=== PATIENT | female | born 1970 | race Caucasian/White ===

== ENCOUNTER 2018-07-01 10:19 | Emergency (ER) | payer BC ==
[2018-07-01 10:39] VITALS: BP 133/78
--- NOTE | 2018-07-01 11:11 | EDM.PDOC ---
ED HPI GENERAL MEDICAL PROBLEM - General Chief Complaint: IV Access Related Stated Complaint: PORT FLUSH Time Seen by Provider: 07/01/18 10:38 Source of Information: Reports: Patient History Limitations: Reports: No Limitations - History of Present Illness INITIAL COMMENTS - FREE TEXT/NARRATIVE: The patient presents for a port-a-cath flush. She was out of supplies and she was gone for a few days. She ordered supplies but they are not here yet. She has the cath for MS. She gets infusions. Onset: Gradual Duration: Day(s): Improves with: Reports: None Worsens with: Reports: None Associated Symptoms: Reports: No Other Symptoms - Related Data Allergies Allergy/AdvReac Type Severity Reaction Status Date / Time gabapentin Allergy Cannot Verified 07/01/18 10:26 Remember Sulfa (Sulfonamide Allergy Rash Verified 07/01/18 10:26 Antibiotics) venom-honey bee Allergy Cannot Verified 07/01/18 10:26 [bee venom (honey bee)] Remember Home Meds: Home Meds Estradiol Cypionate [Depo-Estradiol] 1 mg IM ONETIME PRN 07/08/15 [History] Amitriptyline HCl 75 mg PO BEDTIME 07/01/18 [History] Chlorthalidone 25 mg PO DAILY 07/01/18 [History] Fingolimod HCl [Gilenya] 0.5 mg PO DAILY 07/01/18 [History] Levothyroxine 25 mcg PO DAILY 07/01/18 [History] Metoprolol Succinate 50 mg PO DAILY 07/01/18 [History] Topiramate [Topamax] 25 mg PO BID 07/01/18 [History] Past Medical History HEENT History: Reports: Impaired Vision Other HEENT History: wears eyeglasses Cardiovascular History: Reports: Heart Murmur, Hypertension Respiratory History: Reports: Pneumonia, Recurrent 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 LIN[employer] CONTROLLER History: Hysterectomy Musculoskeletal History: Reports: Fracture Neurological History: Reports: Migraines, MS Endocrine/Metabolic History: Reports: Hypothyroidism - Infectious Disease History Infectious Disease History: Reports: Chicken Pox, Measles - Past Surgical History GI Surgical History: Reports: Appendectomy, Cholecystectomy Other Musculoskeletal Surgeries/Procedures:: elbow surgery Social & Family History - Tobacco Use Smoking Status *Q: Never Smoker Second Hand Smoke Exposure: No - Caffeine Use Caffeine Use: Reports: Coffee - Recreational Drug Use Recreational Drug Use: No ED ROS GENERAL - Review of Systems Review Of Systems: See Below Constitutional: Reports: No Symptoms HEENT: Reports: No Symptoms Respiratory: Reports: No Symptoms Cardiovascular: Reports: No Symptoms Endocrine: Reports: No Symptoms GI/Abdominal: Reports: No Symptoms : Reports: No Symptoms ED EXAM, GENERAL - Physical Exam Exam: See Below Exam Limited By: No Limitations General Appearance: Alert, No Apparent Distress Ears: Normal External Exam Nose: Normal Inspection Head: Atraumatic, Normocephalic Neck: Normal Inspection Respiratory/Chest: No Respiratory Distress, Lungs Clear, Normal Breath Sounds Cardiovascular: Regular Rate, Rhythm, No Edema, No Murmur Course - Vital Signs Last Recorded V/S: Last Vital Signs Temp 98.4 F 07/01/18 10:25 Pulse 82 07/01/18 10:25 Resp 16 07/01/18 10:25 BP 133/78 07/01/18 10:25 Pulse Ox 95 07/01/18 10:25 - Orders/Labs/Meds Meds: Medications Discontinued Medications Generic Name Dose Route Start Last Admin Trade Name Thai PRN Reason Stop Dose Admin Heparin Sodium (Porcine) 500 units 07/01/18 10:58 07/01/18 10:58 Heparin Lock Flush 100 Units/Ml FLUSH 07/01/18 10:59 500 units ASDIRECTED ONE Administration Heparin Sodium (Porcine) Confirm 07/01/18 10:54 07/01/18 11:00 Heparin Lock Flush 100 Units/Ml Administered 07/01/18 10:55 Not Given Dose 500 units .ROUTE .STK-MED ONE - Re-Assessments/Exams Free Text/Narrative Re-Assessment/Exam: 07/01/18 19:02 My nurse gave her the supplies and they patient took care of it. I will discharge her home. Departure - Departure Time of Disposition: 11:20 Disposition: Home, Self-Care 01 Condition: Good Clinical Impression: Encounter for care related to Port-a-Cath - Discharge Information *PRESCRIPTION DRUG MONITORING PROGRAM REVIEWED*: Not Applicable *COPY OF PRESCRIPTION DRUG MONITORING REPORT IN PATIENT GERMAN: Not Applicable Referrals: Yessy Jay BLOCKMAN [Primary Care Provider] - Forms: ED Department Discharge Additional Instructions: Flush your cath as directed. Please return if you have any problems.
== END 2018-07-01 11:20 | disposition home or self-care (01) ==
LOC: JD.ED 10:19 → SUPCPDRO 10:19 → JD.ED 11:20
DX: Z45.2 Encounter for adjustment and management of vascular access device (principal); I10 Essential (primary) hypertension; Z79.899 Other long term (current) drug therapy; Z88.2 Allergy status to sulfonamides; Z91.030 Bee allergy status; Z88.8 Allergy status to other drugs, medicaments and biological substances
CPT/HCPCS: 99283; J1642

== ENCOUNTER 2020-06-23 09:55 | Emergency (ER) | payer SELFPAY ==
[2020-06-23] MEDS ORDERED: Ondansetron 4 MG/2 ML SDV IVPUSH ONE (10:30)
[2020-06-23] MEDS ORDERED: Dextrose 5%-0.9% NaCl 1,000 ML IV SCH ×2 (10:30→15:45)
[2020-06-23] MEDS ORDERED: HYDROmorphone 0.5 MG/0.5 ML Syringe IVPUSH ONE ×4 (10:31→15:30)
--- NOTE | 2020-06-23 10:31 | EDM.PDOC ---
ED HPI GENERAL MEDICAL PROBLEM - General Chief Complaint: Flank Pain Stated Complaint: SIDE PAIN AND SOB Time Seen by Provider: 06/23/20 10:17 Source of Information: Reports: Patient History Limitations: Reports: No Limitations, Other (Minute examination of her abdomen due to the severity of her pain.) - History of Present Illness INITIAL COMMENTS - FREE TEXT/NARRATIVE: 49-year-old female presents to the ED with diffuse right upper quadrant right lower quadrant abdominal pain over the last 2 days. She arrived in the ED per wheelchair. She has had previous cholecystectomy and appendectomy. Patient has multiple sclerosis diagnosed in 1994. She is having trouble eating and maintaining weight. Intermittent problems with migraine headaches. Last one was 6 days ago. She admits that she does not eat anything solid for at least 48 hours. Very little oral fluid intake as well. She denies any dysuria urgency or frequency but with her MS she has had recurrent urinary tract infections. History of kidney stones. Currently pain is constant right upper quadrant of the abdomen with intermittent strong colicky component. It does radiate into her right flank suggestive of renal colic. No bowel movement for the last 2 days. I can smell strong ketones on her breath. She is very apprehensive about having any kind of abdominal exam. She states her dog jumped up on her abdomen this morning and it hurt terribly. She reports being very nauseated but has not vomited. She denies cough or sputum production. Onset: Gradual Onset Date: 06/22/20 Duration: Hour(s): (Dental pain started yesterday and has progressively worsened over the last 24 hours), Getting Worse Location: Reports: Abdomen (Primarily right upper quadrant of the abdomen and right lower anterior chest.) Quality: Reports: Other (Constant deep aching pain right upper abdomen) Severity: Severe (with occasional sharp stabbing colicky pain 8-9 out of 10.) Improves with: Reports: None Worsens with: Reports: Other Context: Denies: Activity (With movement and breathing deeply or coughing.), Exercise, Lifting, Sick Contact, Trauma, Other Associated Symptoms: Reports: Chest Pain (Right lower anterior chest pain), Loss of Appetite, Malaise, Nausea/Vomiting (As he without vomiting), Shortness of Breath, Weakness (Hypnic on exam). Denies: Confusion, Cough, cough w sputum, Diaphoresis, Fever/Chills, Headaches, Rash, Seizure, Syncope Treatments SOCIAL MEDIA DIRECTOR: Reports: Acetaminophen Right Flank Pain Score (Numeric/FACES): 10 - Related Data Allergies Allergy/AdvReac Type Severity Reaction Status Date / Time gabapentin Allergy Cannot Verified 06/23/20 10:16 Remember Sulfa (Sulfonamide Allergy Rash Verified 06/23/20 10:16 Antibiotics) venom-honey bee Allergy Cannot Verified 06/23/20 10:16 [bee venom (honey bee)] Remember Home Meds: Home Meds Estradiol Cypionate [Depo-Estradiol] 1 mg IM ONETIME PRN 07/08/15 [History] Amitriptyline HCl 75 mg PO BEDTIME 07/01/18 [History] Chlorthalidone 25 mg PO DAILY 07/01/18 [History] Fingolimod HCl [Gilenya] 0.5 mg PO DAILY 07/01/18 [History] Levothyroxine 25 mcg PO DAILY 07/01/18 [History] Metoprolol Succinate 50 mg PO DAILY 07/01/18 [History] Topiramate [Topamax] 25 mg PO BID 07/01/18 [History] Acetaminophen/HYDROcodone [[place] 325-5 MG] 1 tab PO Q4H #12 tablet 06/23/20 [Rx] Dicyclomine [Bentyl] 20 mg PO Q6H PRN #12 tablet 06/23/20 [Rx] Ondansetron [Zofran] 4 mg BUCCAL Q6H PRN #10 tab 06/23/20 [Rx] Past Medical History HEENT History: Reports: Impaired Vision Other HEENT History: wears eyeglasses Cardiovascular History: Reports: Heart Murmur, Hypertension Respiratory History: Reports: Pneumonia, Recurrent [employer] History: Reports: Other [employer] History: Hysterectomy Musculoskeletal History: Reports: Fracture Neurological History: Reports: Migraines, MS (Diagnosed in 2015) Endocrine/Metabolic History: Reports: Hypothyroidism - Infectious Disease History Infectious Disease History: Reports: Chicken Pox, Measles - Past Surgical History GI Surgical History: Reports: Appendectomy, Cholecystectomy Other Musculoskeletal Surgeries/Procedures:: elbow surgery Social & Family History - Tobacco Use Smoking Status *Q: Current Every Day Smoker Years of Tobacco use: 20 Packs/Tins Daily: 0.5 - Caffeine Use Caffeine Use: Reports: Coffee - Recreational Drug Use Recreational Drug Use: No - Living Situation & Occupation Living situation: Reports: Occupation: Unemployed ED ROS GENERAL - Review of Systems Review Of Systems: See Below Constitutional: Reports: Malaise, Weakness, Fatigue, Decreased Appetite, Weight Loss (Has been slowly losing weight for the last couple of months.). Denies: Fever, Chills HEENT: Reports: No Symptoms Respiratory: Reports: Shortness of Breath. Denies: Wheezing, Pleuritic Chest Pain, Cough, Sputum Cardiovascular: Reports: Chest Pain (Her anterior chest pain referred from the upper abdomen.), Blood Pressure Problem, Lightheadedness. Denies: Claudication, Edema, Orthopnea Endocrine: Reports: Fatigue GI/Abdominal: Reports: Abdominal Pain (Right upper quadrant abdominal pain which is constant with a colicky component. Radiates into her right flank), Constipation, Nausea (Problems with constipation.). Denies: Vomiting : Reports: Flank Pain (Neck discomfort.), Incontinence. Denies: Dysuria, Frequency Musculoskeletal: Reports: Other (Weakness so on her right side than on the left. She usually gets around without any gait aid but does have 2 canes at home if she needs them.) Skin: Reports: No Symptoms ( of arms and legs due to multiple sclerosis.) Neurological: Reports: Numbness, Tingling, Difficulty Walking (Due to multiple sclerosis.), Weakness Psychiatric: Reports: No Symptoms Hematologic/Lymphatic: Reports: No Symptoms Immunologic: Reports: No Symptoms ED EXAM, GI/ABD - Physical Exam Exam: See Below Exam Limited By: Uncooperative (Having her abdomen examined due to the pain.) General Appearance: Alert, WD/WN, Moderate Distress, Thin, Other (Ventilating and breath smells strongly of ketones. Vital signs show temperature of 36.2. Heart rate 106 and sinus respiratory 22 with a O2 sats of 98% BP 156/87) Eyes: Bilateral: Normal Appearance (No scleral icterus or blepharal pallor.) Throat/Mouth: Normal Inspection, Normal Lips, Normal Oropharynx, Other (Lung is very dry and coated.) Head: Atraumatic, Normocephalic Neck: Normal Inspection, Supple, Non-Tender, Full Range of Motion. No: Carotid Bruit, Lymphadenopathy (L), Lymphadenopathy (R) Respiratory/Chest: Lungs Clear, Normal Breath Sounds, No Accessory Muscle Use, Respiratory Distress (Kidney at rest. Hyperventilating), Other (Patient has a Port-A-Cath right upper anterior chest) Cardiovascular: Normal Peripheral Pulses, No Edema, No Gallop, No Murmur, No R ub, Tachycardia (Cardiac arrest 106.) GI/Abdominal Exam: Tender (Patient is exquisitely tender to palpation right upper quadrant right mid abdomen all the way down to the right lower quadrant. She is guarding and has pain even to light percussion. She would not allow deep palpation.), Abnormal Bowel Sounds (Bowel sounds are present but are few and far between.), Other (Day void abdomen.) Back Exam: Other (Back was not examined as the patient) Extremities: Normal Inspection, Normal Range of Motion, Non-Tender, No Pedal Edema, Other (Wasting of the muscles of her lower extremities very thin.) Neurological: Alert, Oriented, CN II-XII Intact, Normal Cognition. No: Normal Gait (Not assessed), Normal Reflexes Psychiatric: Other (Anxious and apprehensive about being examined.) Skin Exam: Warm, Dry, Intact, Normal Color, No Rash, Other (No fever detected.) EKG INTERPRETATION EKG Date: 06/23/20 Time: 11:15 Rhythm: NSR Rate (Beats/Min): 76 [place]: Normal P-Wave: Present (P wave is inverted in lead V1 and V2 nonspecific finding) QRS: Other (Q wave V1 V2 suggesting poor R wave progression.) ST-T: Normal QT: Normal EKG Interpretation Comments: Borderline ECG Course - Vital Signs Last Recorded V/S: Last Vital Signs Temp 36.1 C 06/23/20 15:01 Pulse 58 L 06/23/20 15:01 Resp 16 06/23/20 15:01 BP 120/63 06/23/20 15:01 Pulse Ox 98 06/23/20 15:01 - Orders/Labs/Meds Orders: Active Orders 24 hr Category Date Time Status EKG Documentation Completion [RC] STAT Care 06/23/20 10:40 Active VITAMIN B12 [CHEM] Stat Lab 06/23/20 15:59 Ordered Dextrose 5%-0.9% NaCl [Dextrose 5%-Normal Saline] 1,000 Med 06/23/20 10:30 Active ml IV ASDIRECTED Dextrose 5%-0.9% NaCl [Dextrose 5%-Normal Saline] 1,000 Med 06/23/20 15:45 Active ml IV ASDIRECTED Dextrose 5%-Lactated Ringers 1,000 ml Med 06/23/20 12:15 Active IV ASDIRECTED Ketorolac [Toradol] Med 06/23/20 15:30 Active 30 mg IVPUSH ONETIME Medication Orders Dextrose/Sodium Chloride (Dextrose 5%-Normal Saline) 1,000 mls @ 999 mls/hr IV ASDIRECTED CARIDAD Last Admin: 06/23/20 10:54 Dose: 999 mls/hr Documented by: MIKAELA Dextrose/Lactated Ringer's (Dextrose 5%-Lactated Ringers) 1,000 mls @ 999 mls/hr IV ASDIRECTED CARIDAD Last Admin: 06/23/20 13:41 Dose: 999 mls/hr Documented by: Infusion: 06/23/20 13:18 Dose: 999 mls/hr Documented by: Admin: 06/23/20 12:17 Dose: 999 mls/hr Documented by: MIKAELA Dextrose/Sodium Chloride (Dextrose 5%-Normal Saline) 1,000 mls @ 999 mls/hr IV ASDIRECTED CARIDAD Last Admin: 06/23/20 15:50 Dose: 999 mls/hr Documented by: MIKAELA Ketorolac Tromethamine (Toradol) 30 mg IVPUSH ONETIME CARIDAD Last Admin: 06/23/20 15:52 Dose: 30 mg Documented by: MIKAELA Labs: Laboratory Tests 06/23/20 06/23/20 06/23/20 Range/Units 10:30 10:50 10:50 WBC 5.06 (3.98-10.04) K/mm3 RBC 4.02 (3.98-5.22) M/mm3 Hgb 14.7 (11.2-15.7) gm/dl Hct 41.1 (34.1-44.9) % MCV 102.2 H (79.4-94.8) fl MCH 36.6 H (25.6-32.2) pg MCHC 35.8 H (32.2-35.5) g/dl RDW Std Deviation 53.4 H (36.4-46.3) fL Plt Count 224 (182-369) K/mm3 MPV 8.3 L (9.4-12.3) fl Neutrophils % (Manual) 82 H (40-60) % Band Neutrophils % 1 (0-10) % Lymphocytes % (Manual) 11 L (20-40) % Atypical Lymphs % 0 % Monocytes % (Manual) 5 (2-10) % Eosinophils % (Manual) 0 L (0.7-5.8) % Basophils % (Manual) 1 (0.1-1.2) Platelet Estimate Adequate Plt Morphology Comment Normal Macrocytosis 1+ slight RBC Morph Comment Not Reportable ESR (0-20) mm/hr Sodium 134 L (136-145) mEq/L Potassium 4.5 (3.5-5.1) mEq/L Chloride 97 L (98-107) mEq/L Carbon Dioxide 17 L (21-32) mEq/L Anion Gap 24.5 H (5-15) BUN 15 (7-18) mg/dL Creatinine 1.0 (0.55-1.02) mg/dL Est Cr Clr Drug Dosing 42.89 mL/min Estimated GFR (MDRD) 58 (>60) mL/min BUN/Creatinine Ratio 15.0 (14-18) Glucose 74 (74-106) mg/dL Serum Osmolality 292 (280-300) mosm/kg Lactic Acid (0.4-2.0) mmol/L Uric Acid (2.6-6.0) mg/dL Calcium 9.4 (8.5-10.1) mg/dL Magnesium 1.8 (1.8-2.4) mg/dl Total Bilirubin 1.2 H (0.2-1.0) mg/dL AST 87 H (15-37) U/L ALT 61 H (14-59) U/L Alkaline Phosphatase 92 (46-116) U/L C-Reactive Protein < 0.2 (<1.0) mg/dL Total Protein 7.8 (6.4-8.2) g/dl Albumin 4.5 (3.4-5.0) g/dl Globulin 3.3 gm/dL Albumin/Globulin Ratio 1.4 (1-2) Urine Color Yellow (Yellow) Urine Appearance Clear (Clear) Urine pH 6.0 (5.0-8.0) Ur Specific [place] 1.025 (1.005-1.030) Urine Protein 1+ H (Negative) Urine Glucose (UA) Negative (Negative) Urine Ketones 3+ H (Negative) Urine Occult Blood Negative (Negative) Urine Nitrite Negative (Negative) Urine Bilirubin 1+ H (Negative) Urine Urobilinogen 0.2 (0.2-1.0) Ur Leukocyte Esterase Negative (Negative) Urine RBC Not seen (0-5) /hpf Urine WBC 0-5 (0-5) /hpf Ur Squamous Epith Cells 5-10 H (0-5) /hpf Urine Bacteria Not seen (FEW) /hpf Urine Mucus Not seen (FEW) /hpf Ketones (0.0-0.3) mM 06/23/20 06/23/20 06/23/20 Range/Units 10:50 10:50 10:50 WBC (3.98-10.04) K/mm3 RBC (3.98-5.22) M/mm3 Hgb (11.2-15.7) gm/dl Hct (34.1-44.9) % MCV (79.4-94.8) fl MCH (25.6-32.2) pg MCHC (32.2-35.5) g/dl RDW Std Deviation (36.4-46.3) fL Plt Count (182-369) K/mm3 MPV (9.4-12.3) fl Neutrophils % (Manual) (40-60) % Band Neutrophils % (0-10) % Lymphocytes % (Manual) (20-40) % Atypical Lymphs % % Monocytes % (Manual) (2-10) % Eosinophils % (Manual) (0.7-5.8) % Basophils % (Manual) (0.1-1.2) Platelet Estimate Plt Morphology Comment Macrocytosis RBC Morph Comment ESR 6 (0-20) mm/hr Sodium (136-145) mEq/L Potassium (3.5-5.1) mEq/L Chloride (98-107) mEq/L Carbon Dioxide (21-32) mEq/L Anion Gap (5-15) BUN (7-18) mg/dL Creatinine (0.55-1.02) mg/dL Est Cr Clr Drug Dosing mL/min Estimated GFR (MDRD) (>60) mL/min BUN/Creatinine Ratio (14-18) Glucose (74-106) mg/dL Serum Osmolality (280-300) mosm/kg Lactic Acid 1.0 (0.4-2.0) mmol/L Uric Acid (2.6-6.0) mg/dL Calcium (8.5-10.1) mg/dL Magnesium (1.8-2.4) mg/dl Total Bilirubin (0.2-1.0) mg/dL AST (15-37) U/L ALT (14-59) U/L Alkaline Phosphatase (46-116) U/L C-Reactive Protein (<1.0) mg/dL Total Protein (6.4-8.2) g/dl Albumin (3.4-5.0) g/dl Globulin gm/dL Albumin/Globulin Ratio (1-2) Urine Color (Yellow) Urine Appearance (Clear) Urine pH (5.0-8.0) Ur Specific [place] (1.005-1.030) Urine Protein (Negative) Urine Glucose (UA) (Negative) Urine Ketones (Negative) Urine Occult Blood (Negative) Urine Nitrite (Negative) Urine Bilirubin (Negative) Urine Urobilinogen (0.2-1.0) Ur Leukocyte Esterase (Negative) Urine RBC (0-5) /hpf Urine WBC (0-5) /hpf Ur Squamous Epith Cells (0-5) /hpf Urine Bacteria (FEW) /hpf Urine Mucus (FEW) /hpf Ketones 8.16 (0.0-0.3) mM 06/23/20 06/23/20 06/23/20 Range/Units 10:50 15:50 15:50 WBC (3.98-10.04) K/mm3 RBC (3.98-5.22) M/mm3 Hgb (11.2-15.7) gm/dl Hct (34.1-44.9) % MCV (79.4-94.8) fl MCH (25.6-32.2) pg MCHC (32.2-35.5) g/dl RDW Std Deviation (36.4-46.3) fL Plt Count (182-369) K/mm3 MPV (9.4-12.3) fl Neutrophils % (Manual) (40-60) % Band Neutrophils % (0-10) % Lymphocytes % (Manual) (20-40) % Atypical Lymphs % % Monocytes % (Manual) (2-10) % Eosinophils % (Manual) (0.7-5.8) % Basophils % (Manual) (0.1-1.2) Platelet Estimate Plt Morphology Comment Macrocytosis RBC Morph Comment ESR (0-20) mm/hr Sodium 135 L (136-145) mEq/L Potassium 3.6 (3.5-5.1) mEq/L Chloride 103 (98-107) mEq/L Carbon Dioxide 25 (21-32) mEq/L Anion Gap 10.6 (5-15) BUN 9 (7-18) mg/dL Creatinine 0.9 (0.55-1.02) mg/dL Est Cr Clr Drug Dosing 47.66 mL/min Estimated GFR (MDRD) > 60 (>60) mL/min BUN/Creatinine Ratio 10.0 L (14-18) Glucose 346 H (74-106) mg/dL Serum Osmolality (280-300) mosm/kg Lactic Acid (0.4-2.0) mmol/L Uric Acid 6.4 H (2.6-6.0) mg/dL Calcium 8.1 L (8.5-10.1) mg/dL Magnesium (1.8-2.4) mg/dl Total Bilirubin 0.7 (0.2-1.0) mg/dL AST 53 H (15-37) U/L ALT 42 (14-59) U/L Alkaline Phosphatase 68 (46-116) U/L C-Reactive Protein (<1.0) mg/dL Total Protein 5.8 L (6.4-8.2) g/dl Albumin 3.3 L (3.4-5.0) g/dl Globulin 2.5 gm/dL Albumin/Globulin Ratio 1.3 (1-2) Urine Color (Yellow) Urine Appearance (Clear) Urine pH (5.0-8.0) Ur Specific [place] (1.005-1.030) Urine Protein (Negative) Urine Glucose (UA) (Negative) Urine Ketones (Negative) Urine Occult Blood (Negative) Urine Nitrite (Negative) Urine Bilirubin (Negative) Urine Urobilinogen (0.2-1.0) Ur Leukocyte Esterase (Negative) Urine RBC (0-5) /hpf Urine WBC (0-5) /hpf Ur Squamous Epith Cells (0-5) /hpf Urine Bacteria (FEW) /hpf Urine Mucus (FEW) /hpf Ketones 0.2 (0.0-0.3) mM Meds: Medications Generic Name Dose Route Start Last Admin Trade Name Freq PRN Reason Stop Dose Admin Dextrose/Sodium Chloride 1,000 mls @ 999 mls/hr 06/23/20 10:30 06/23/20 10:54 Dextrose 5%-Normal Saline IV 999 mls/hr ASDIRECTED CARIDAD Administration Dextrose/Lactated Ringer's 1,000 mls @ 999 mls/hr 06/23/20 12:15 06/23/20 13:41 Dextrose 5%-Lactated Ringers IV 999 mls/hr ASDIRECTED CARIDAD Administration Dextrose/Sodium Chloride 1,000 mls @ 999 mls/hr 06/23/20 15:45 06/23/20 15:50 Dextrose 5%-Normal Saline IV 999 mls/hr ASDIRECTED CARIDAD Administration Ketorolac Tromethamine 30 mg 06/23/20 15:30 06/23/20 15:52 Toradol IVPUSH 30 mg ONETIME CARIDAD Administration Discontinued Medications Generic Name Dose Route Start Last Admin Trade Name Thai PRN Reason Stop Dose Admin Hydromorphone HCl 0.5 mg 06/23/20 10:31 06/23/20 10:55 Dilaudid IVPUSH 06/23/20 10:32 0.5 mg ONETIME ONE Administration Hydromorphone HCl 0.5 mg 06/23/20 11:33 06/23/20 11:40 Dilaudid IVPUSH 06/23/20 11:34 0.5 mg ONETIME ONE Administration Hydromorphone HCl 0.5 mg 06/23/20 13:29 06/23/20 13:39 Dilaudid IVPUSH 06/23/20 13:30 0.5 mg ONETIME ONE Administration Hydromorphone HCl 0.5 mg 06/23/20 15:30 06/23/20 15:52 Dilaudid IVPUSH 06/23/20 15:31 0.5 mg ONETIME ONE Administration Metoclopramide HCl 5 mg 06/23/20 15:29 06/23/20 15:50 Reglan IVPUSH 06/23/20 15:30 5 mg ONETIME ONE Administration Ondansetron HCl 4 mg 06/23/20 10:30 06/23/20 10:53 Zofran IVPUSH 06/23/20 10:31 4 mg ONETIME ONE Administration - Radiology Interpretation Free Text/Narrative:: 49-year-old female with known multiple sclerosis for 5 years presents to the ED complaining primarily of severe right mary-abdominal pain. It hurts to take a deep breath on the right anterior chest. She has had previous cholecystectomy and appendectomy. Clinically she is showing signs of peritoneal irritation of the right lower quadrant. She is apprehensive to allow a thorough examination of the abdomen. Bowel sounds are present but are few and far between. She has not been eating for a couple of days at least and is breath smells strongly of ketones. I believe she is significantly acidotic. This is mainly to be due to ketosis from not eating for several days. Plan 1 view of the chest. CT of the abdomen and pelvis with out contrast. Routine labs without blood cultures at this time since she is afebrile. Urinalysis. Serum ketones and lactic acid to be done. Serum osmolality as well. IV will be D5 normal saline at open. Given Zofran 4 mg IV for nausea relief and Dilaudid 0.5 mg IV for pain relief. - Re-Assessments/Exams Free Text/Narrative Re-Assessment/Exam: 06/23/20 11:19 chest x-ray done portably reveals markedly hyperinflated lung moy bilaterally. The lung parenchyma is clear without pneumothorax or pleural effusion. Cardiac silhouette is normal. No free air. CT of the abdomen reveals normal liver with mild fatty infiltration. With absence of the gallbladder. Pancreas appears normal stomach contains fluid spleen is normal. Adrenal glands show no nodules . Right kidney is slightly larger than the left but no signs of renal stones or ureteric obstruction identified. There is no free fluid or inflammatory change. There is a fair amount of air distending the colon and minimal amount of stool. There is one loop of slightly prominent gas-filled small bowel within the mid abdomen. This does not appear to be obstructive and may represent a focal small bowel ileus. No signs of bowel obstruction. No retroperitoneal adenopathy. No fluid in the pelvis. 06/23/20 11:24 Count is 5.06 with 82% neutrophils and 1% bands cells. Hemoglobin is 14.7 with hematocrit of 41.1. MCV is elevated at 102.2 platelet count 224,000. Urinalysis shows 1+ proteinuria 3+ ketones and 1+ bilirubin on the dip. Negative leukocyte esterase no white cells on the micro and 5-10 squamous epithelial cells. 06/23/20 11:37 having quite a bit of pain almost writhing on the bed. She appears quite uncomfortable. Nausea is better. Will repeat Dilaudid 0.5 mg IV. Will await chemistry. 06/23/20 11:39 Sodium is 134 with a potassium of 4.5 chloride 97 with a bicarb 17 anion gap is 24.5 markedly elevated. BUN is 15 with a creatinine of 1.0. Estimated GFR is 58. Glucose is 74 serum osmolality is pending. Calcium is 9.4 with magnesium 1.8 bilirubin is 1.2 with an AST of 87 and ALT of 61. Alkaline phosphatase is 92. C-reactive protein is less than 0.2. Total protein 7.8 with an albumin fraction of 4.5. Lactic acid and ketones pending 06/23/20 12:09 Results of the test discussed with the patient. Lactic acid is 1.0 serum osmolality was 292 serum ketones markedly elevated at 8.16. Patient has completed her first liter of IV fluids will start a second liter of D5 LR at open. She will need at least 3 L of fluid to improve her anion gap. 06/23/20 13:30 and is complaining of recurrent right upper quadrant abdominal pain which I believe to be intestinal colic. Will repeat Dilaudid 0.5 mg IV for pain relief. 06/23/20 15:30 Patient has completed their third liter of IV fluids. Still complaining of right upper quadrant abdominal pain I am therefore going to have repeat labs done to see what her anion gap is. Meantime we will continue fluids until the results of this test become available. I will repeat Dilaudid 0.5 mg IV with Reglan 5 mg IV for nausea relief which has returned as well. Will be given Toradol 30 mg IV for pain relief as well. 06/23/20 16:35 Second set of labs show an improved sodium from 1 34-1 35. Potassium is 3.6 chloride 103 with a bicarb of 25 anion gap is down to 10.6 from 24.5. BUN is 9 with a creatinine of 0.9. Glucose is 346. Ketones are down to 0.2. For her ketoacidosis has been completely corrected and she is well hydrated. Plan will be to discharge her to home with Zofran 4 mg sublingual every 4 to 6 hours. For nausea relief and Bentyl 20 mg every 6 hours as necessary for abdominal pain relief with tramadol 50 mg every 6 hours as needed for pain relief x12 tabs is feeling better. She has family members that will come and take her home. Departure - Departure Time of Disposition: 16:43 Disposition: Home, Self-Care 01 Condition: Fair Clinical Impression: Metabolic acidosis with increased anion gap and accumulation of organic acids, Ketosis Abdominal pain Qualifiers: Abdominal location: right upper quadrant Qualified Code(s): R10.11 - Right upper quadrant pain - Discharge Information *PRESCRIPTION DRUG MONITORING PROGRAM REVIEWED*: Not Applicable *COPY OF PRESCRIPTION DRUG MONITORING REPORT IN PATIENT GERMAN: Not Applicable Prescriptions: Dicyclomine [Bentyl] 20 mg PO Q6H PRN #12 tablet PRN Reason: Abdominal cramps/diarrhea Acetaminophen/HYDROcodone [[place] 325-5 MG] 1 tab PO Q4H #12 tablet Ondansetron [Zofran] 4 mg BUCCAL Q6H PRN #10 tab PRN Reason: nausea or vomiting Instructions: Abdominal Pain, Adult Referrals: Fito Calloway DO [Primary Care Provider] - Forms: ED Department Discharge Additional Instructions: Evaluation in the emergency room today in regards to gradually worsening right sided abdominal pain particularly right upper quadrant over the last 3 days. You admitted that you are having trouble maintaining weight due to not caring for sweet foods particularly candy etc. Evaluation initially we could smell a great deal of ketones on your breath which means that you are breaking down only your fats for energy. The accumulation of broken down fatty acids which we lump together called ketones but are actually made of 3 different chemicals because of metabolic acidosis. Your body tries very hard to maintain your blood pH at 7.4. When you develop an acidosis it creates nausea vomiting and severe abdominal pain rating into the flanks. CT of your abdomen did not show any signs of infection or other abnormalities. Similarly chest x-ray was within normal limits. Lab test also did not show any signs of infection and no signs of urinary tract infection. You were treated with 3 L of IV fluids containing sugar and the electrolytes that she required to reverse the metabolic acidosis. Still need to continue to drink fluids particularly things like Gatorade or Powerade and fairly large quantities for the next 2 days to prevent recurrence of metabolic acidosis. You must also start to eat some solids. Suggest protein milkshakes or other forms of carbohydrates to have some sugar in your system to prevent the reoccurrence of ketoacidosis. Follow-up with your personal care physician if any further problems occur. Continue all current medications. Sepsis Event Note (ED) - Evaluation Sepsis Screening Result: No Definite Risk - Focused Exam Vital Signs: Vital Signs Temp Pulse Resp BP Pulse Ox 06/23/20 15:01 36.1 C 58 L 16 120/63 98 06/23/20 13:43 70 18 124/69 06/23/20 12:01 36.1 C 73 16 109/68 93 L 06/23/20 10:12 36.2 C 22 H 156/87 H 98 - My Orders Last 24 Hours: My Active Orders 06/23/20 10:30 Dextrose 5%-0.9% NaCl [Dextrose 5%-Normal Saline] 1,000 ml IV ASDIRECTED 06/23/20 10:40 EKG Documentation Completion [RC] STAT 06/23/20 12:15 Dextrose 5%-Lactated Ringers 1,000 ml IV ASDIRECTED 06/23/20 15:30 Ketorolac [Toradol] 30 mg IVPUSH ONETIME 06/23/20 15:45 Dextrose 5%-0.9% NaCl [Dextrose 5%-Normal Saline] 1,000 ml IV ASDIRECTED 06/23/20 15:59 VITAMIN B12 [CHEM] Stat - Assessment/Plan Last 24 Hours: My Active Orders 06/23/20 10:30 Dextrose 5%-0.9% NaCl [Dextrose 5%-Normal Saline] 1,000 ml IV ASDIRECTED 06/23/20 10:40 EKG Documentation Completion [RC] STAT 06/23/20 12:15 Dextrose 5%-Lactated Ringers 1,000 ml IV ASDIRECTED 06/23/20 15:30 Ketorolac [Toradol] 30 mg IVPUSH ONETIME 06/23/20 15:45 Dextrose 5%-0.9% NaCl [Dextrose 5%-Normal Saline] 1,000 ml IV ASDIRECTED 06/23/20 15:59 VITAMIN B12 [CHEM] Stat
--- NOTE | 2020-06-23 11:26 | CT ---
CT abdomen and pelvis Technique: Multiple axial sections were obtained from above the dome of the diaphragm inferiorly through the pubic symphysis. Intravenous and oral contrast not utilized. Study has been performed as a ureteral stone protocol. Findings: Kidneys show no abnormal calcifications. No ureteral dilatation or ureteral calculi are seen. No bladder calculi are seen. Visualized lung bases show nothing acute. Liver contains no focal parenchymal abnormality. Liver shows mild fatty infiltration. Spleen appears within normal limits. Adrenal glands show no nodule. Pancreas is within normal limits. Surgical clips are seen from prior cholecystectomy. Aorta shows no aneurysm. No retroperitoneal adenopathy or mesenteric abnormalities are seen. No pelvic mass or adenopathy is seen. No free fluid or inflammatory change is appreciated. Appendix not visualized with certainty. There is a loop of slightly prominent gas-filled small bowel within the mid abdomen. This does not appear to be obstructive and may represent a focal small bowel ileus. No other small bowel dilatation is seen. Impression: 1. No renal calculi, ureteral dilatation or ureteral stone is seen. 2. Single loop of slightly prominent small bowel is seen possibly due to focal ileus. No additional small bowel dilatation is seen. 3. Other nonacute findings as described above. Diagnostic code #3 This report was dictated in [facility]
[2020-06-23] MEDS: Dextrose 5%-Lactated Ringers 1,000 ML IV SCH ×2 (12:17→13:41)
--- NOTE | 2020-06-23 13:55 | CR ---
Chest: Portable view of the chest was obtained. Comparison: Prior chest x-ray of 06/18/19. Heart size and mediastinum are normal. Right-sided infusion catheter is seen. Lungs are clear. Bony structures are grossly intact. Impression: 1. Right-sided infusion catheter. 2. Nothing acute is seen on portable chest x-ray. Diagnostic code #2 This report was dictated in MDT
[2020-06-23] MEDS ORDERED: Metoclopramide 10 MG/2 ML SDV IVPUSH ONE (15:29)
[2020-06-23] MEDS ORDERED: Ketorolac 30 MG/ML SDV IVPUSH SCH (15:30)
[2020-06-23 18:40] VITALS: BP 105/68; PULSE 56
== END 2020-06-23 17:50 | disposition home or self-care (01) ==
LOC: JD.ED 09:55
DX: R10.11 Right upper quadrant pain (principal); E87.2 Acidosis; E88.89 Other specified metabolic disorders; E03.9 Hypothyroidism, unspecified; G43.909 Migraine, unspecified, not intractable, without status migrainosus; I10 Essential (primary) hypertension; F17.210 Nicotine dependence, cigarettes, uncomplicated; Z88.2 Allergy status to sulfonamides; Z91.030 Bee allergy status; Z88.8 Allergy status to other drugs, medicaments and biological substances; Z79.899 Other long term (current) drug therapy
CPT/HCPCS: 36415; 71045; 74176; 80053; 81001; 82009; 82607; 83605; 83735; 83930; 84550; 85007; 85027; 85652; 86140; 93005; 96374; 96375; 96376; 99285; J1170; J1642; J1885; J2405; J2765; J7042; J7121

== ENCOUNTER 2022-06-15 10:47 | Inpatient (IN) | payer MEDICAID ==
[2022-06-15] MEDS ORDERED: methylPREDNISolone Sodium Succinate 125 MG/2 ML SDV IVPUSH ONE (11:19)
[2022-06-15] MEDS ORDERED: Albuterol/Ipratropium 3.0-0.5 MG/3 ML Neb Soln NEB ONE ×2 (11:19→14:17)
[2022-06-15 12:03] LABS: ESTIMATED GFR 103 mL/min (>60)
[2022-06-15] MEDS ORDERED: Sodium Chloride 0.9% 10 ML Syringe FLUSH PRN (12:31)
[2022-06-15] MEDS ORDERED: Iopamidol 755 Mg/ML 100 ML Bottle IVPUSH ONE (12:31)
[2022-06-15] MEDS ORDERED: Sodium Chloride 0.9% 100 ML IV SCH (12:45)
[2022-06-15] MEDS ORDERED: Potassium Chloride 20 MEQ Tab.ER PO ONE (16:44)
[2022-06-15] MEDS ORDERED: Pantoprazole 40 MG Vial ONE (21:23)
[2022-06-15] MEDS ORDERED: Pantoprazole 40 MG in Sodium Chloride 0.9% 100 ML IV ONE (21:45)
[2022-06-15] MEDS ORDERED: Zolpidem 5 MG Tab PO ONE (21:49)
[2022-06-15] MEDS ORDERED: Mirtazapine 15 MG Tab PO ONE (21:50)
[2022-06-15] MEDS: Albuterol/Ipratropium 3.0-0.5 MG/3 ML Neb Soln NEB PRN (21:59)
[2022-06-15] MEDS: Dextrose 5%-0.45% NaCl 1,000 ML IV SCH (22:24)
[2022-06-16] MEDS: Albuterol/Ipratropium 3.0-0.5 MG/3 ML Neb Soln NEB PRN ×4 (05:41→21:48)
[2022-06-16] MEDS: Levothyroxine 25 MCG Tab PO SCH (07:00)
[2022-06-16] MEDS: Cholecalciferol (Vitamin D3) 5,000 UNIT Tab PO SCH (08:06)
[2022-06-16] MEDS: predniSONE 20 MG Tab PO SCH (08:06)
[2022-06-16] MEDS: Losartan 50 MG Tab PO SCH (08:06)
[2022-06-16] MEDS: Nicotine 14 MG/24 Hr Patch TRDERM SCH (08:06)
[2022-06-16] MEDS: Enoxaparin 40 MG/0.4 ML Syringe SUBCUT SCH (08:07)
[2022-06-16] MEDS: Acetaminophen 325 MG Tab PO PRN (09:05)
[2022-06-16] MEDS: Dextrose 5%-0.45% NaCl 1,000 ML IV SCH (11:18)
[2022-06-16] MEDS: guaiFENesin 600 MG Tab.ER PO SCH (20:57)
[2022-06-16] MEDS: Potassium Chloride 20 MEQ Tab.ER PO SCH (20:57)
[2022-06-16] MEDS ORDERED: Zolpidem 5 MG Tab PO SCH (21:00)
[2022-06-16] MEDS ORDERED: Mirtazapine 15 MG Tab PO SCH (21:00)
[2022-06-16] MEDS: Acetylcysteine 20% 200 MG/ML 4 ML Nebulizer Soln SDV NEB SCH (21:45)
[2022-06-17] MEDS: Acetaminophen 325 MG Tab PO PRN (00:09)
[2022-06-17] MEDS: Dextrose 5%-0.45% NaCl 1,000 ML IV SCH (00:10)
[2022-06-17] MEDS: Levothyroxine 25 MCG Tab PO SCH (05:45)
[2022-06-17] MEDS: Acetylcysteine 20% 200 MG/ML 4 ML Nebulizer Soln SDV NEB SCH ×2 (06:15→14:56)
[2022-06-17] MEDS: Albuterol/Ipratropium 3.0-0.5 MG/3 ML Neb Soln NEB PRN ×2 (06:15→14:55)
[2022-06-17 06:47] LABS: ESTIMATED GFR 88 mL/min (>60)
[2022-06-17] MEDS: guaiFENesin 600 MG Tab.ER PO SCH (08:25)
[2022-06-17] MEDS: Losartan 50 MG Tab PO SCH (08:25)
[2022-06-17] MEDS: predniSONE 20 MG Tab PO SCH (08:26)
[2022-06-17] MEDS: Cholecalciferol (Vitamin D3) 5,000 UNIT Tab PO SCH (08:26)
[2022-06-17] MEDS: Enoxaparin 40 MG/0.4 ML Syringe SUBCUT SCH (08:26)
[2022-06-17] MEDS: Potassium Chloride 20 MEQ Tab.ER PO SCH (08:26)
[2022-06-17] MEDS: Nicotine 14 MG/24 Hr Patch TRDERM SCH (08:27)
[2022-06-17 13:29] VITALS: PULSE 65
[2022-06-17 13:30] VITALS: BP 148/80
[2022-06-18] MEDS ORDERED: Levothyroxine 25 MCG Tab PO SCH (06:00)
== END 2022-06-17 15:51 | disposition home or self-care (01) | DRG 190 ==
LOC: JD.ED 10:47 → JD.MS 17:15
PROVIDERS: ADMIT Pediatrics; ATTEND Pediatrics
DX: J44.9 Chronic obstructive pulmonary disease, unspecified (principal); G03.9 Meningitis, unspecified; F41.9 Anxiety disorder, unspecified; G47.00 Insomnia, unspecified; F32.A Depression, unspecified; H54.7 Unspecified visual loss; I10 Essential (primary) hypertension; Z20.822 Contact with and (suspected) exposure to COVID-19; G43.909 Migraine, unspecified, not intractable, without status migrainosus; F17.210 Nicotine dependence, cigarettes, uncomplicated; Z88.2 Allergy status to sulfonamides; Z88.8 Allergy status to other drugs, medicaments and biological substances; Z91.030 Bee allergy status; Z79.890 Hormone replacement therapy; Z79.899 Other long term (current) drug therapy; Z87.01 Personal history of pneumonia (recurrent); Z90.710 Acquired absence of both cervix and uterus; Z86.16 Personal history of COVID-19; Z90.49 Acquired absence of other specified parts of digestive tract
CPT/HCPCS: 36415; 36600; 71045; 71045-26; 71275; 71275-26; 80053; 82103; 82104; 82803; 83880; 84484; 85025; 85379; 86140; 93005; 94640; 94667; 94668; 94760; 94761; A9270-GY; C9113; J1642; J1650; J2930; J3490; J7042; J7512; J7620-GY; Q9967; U0002

== ENCOUNTER 2024-06-25 09:08 | Emergency (ER) | payer MEDICAID ==
[2024-06-25 10:10] LABS: BASOPHILS PERCENT AUTO 0.3 % (0.0-1.0); EOSINOPHILS ABSOLUTE AUTO 0.1 K/mm3 (0.0-0.4); EOSINOPHILS PERCENT AUTO 1.2 % (0.0-6.0); HEMATOCRIT 43.2 % (37.0-47.0); HEMOGLOBIN 15.2 gm/dl (12.0-16.0); IMMATURE GRAN ABSOLUTE AUTO 0.03 K/mm3 (0.00-0.05); IMMATURE GRAN PERCENT AUTO 0.5 % (0.0-0.4); LYMPHOCYTES PERCENT AUTO 17.5 % (24.0-44.0); MEAN CORPUSCULAR HEMOGLOBIN 34.9 pg (28.0-32.0); MEAN CORPUSCULAR HGB CONC 35.2 g/dl (32.0-36.0); MEAN CORPUSCULAR VOLUME 99.1 fl (83.0-99.0); MEAN PLATELET VOLUME 8.3 fl (9.4-12.3); MONOCYTES ABSOLUTE AUTO 0.8 K/mm3 (0.0-0.8); MONOCYTES PERCENT AUTO 13.6 % (0.0-8.0); NEUTROPHILS ABSOLUTE AUTO 3.9 K/mm3 (1.8-7.7); NEUTROPHILS PERCENT AUTO 66.9 % (41.0-71.0); PLATELET COUNT,PLT 234 K/mm3 (150-400); RED BLOOD CELL COUNT 4.36 M/mm3 (4.10-5.30); WHITE BLOOD CELL COUNT,WBC 5.83 K/mm3 (3.9-11.3)
[2024-06-25] MEDS: Dextrose 5%-0.9% NaCl 1,000 ML IV SCH (10:10)
[2024-06-25] MEDS: Metoclopramide 10 MG/2 ML SDV IVPUSH ONE (10:10)
[2024-06-25] MEDS: Ketorolac 30 MG/ML SDV IVPUSH ONE (10:10)
[2024-06-25] MEDS: HYDROmorphone 0.5 MG/0.5 ML Syringe IVPUSH ONE ×2 (10:11→11:30)
[2024-06-25 10:31] LABS: A/G RATIO 1.7 (1-2); ANION GAP 12.4 (5-15); BILIRUBIN TOTAL 1.1 mg/dL (0.2-1.0); BUN/CREATININE RATIO 7.1 (14-18); C-REACTIVE PROTEIN 0.17 mg/dL (<0.30); CALCIUM 9.2 mg/dL (8.5-10.1); CREATININE 0.7 mg/dL (0.55-1.02); EST CRCL DRUG DOSING (CG) 57.77 mL/min; MAGNESIUM 1.2 mg/dL (1.8-2.4); POTASSIUM,K 3.4 mEq/L (3.5-5.1); PROTEIN TOTAL,TP 6.3 g/dl (6.4-8.2)
[2024-06-25 10:33] LABS: LACTIC ACID 0.7 mmol/L (0.4-2.0)
[2024-06-25 10:52] LABS: CORONAVIRUS COVID-19 NAA NEGATIVE (NEGATIVE); INFLUENZA A NAA NEGATIVE (NEGATIVE); RESPIRATORY SYNCYTIAL VIR NAA NEGATIVE (NEGATIVE)
[2024-06-25 11:30] LABS: APPEARANCE,URINE SLT CLOUDY (Clear); BILIRUBIN,URINE NEGATIVE (Negative); COLOR,URINE YELLOW (Yellow); GLUCOSE,URINE TRACE (Negative); KETONES,URINE NEGATIVE (Negative); LEUKOCYTE ESTERASE,URINE NEGATIVE (Negative); NITRITE,URINE NEGATIVE (Negative); OCCULT BLOOD,URINE NEGATIVE (Negative); PROTEIN,URINE NEGATIVE (Negative)
[2024-06-25 11:36] LABS: BACTERIA,URINE RARE /hpf (FEW); EPITHELIAL CELLS,URINE 0-5 /hpf (0-5); MUCUS,URINE RARE /hpf (FEW); RBC,URINE 0-5 /hpf (0-5); WBC,URINE 0-5 /hpf (0-5)
[2024-06-25] MEDS ORDERED: Heparin Sodium 10 UNIT/ML 3 ML Syringe FLUSH ONE (12:44)
[2024-06-25 13:49] VITALS: BP 114/62; PULSE 56
[2024-06-28 04:42] LABS: RMSF IGG <1:64 (<1:64); RMSF IGM <1:64 (<1:64)
== END 2024-06-25 12:55 | disposition home or self-care (01) ==
LOC: JD.ED 09:08
DX: K52.9 Noninfective gastroenteritis and colitis, unspecified (principal); R51.9 Headache, unspecified; E83.42 Hypomagnesemia; I10 Essential (primary) hypertension; E03.9 Hypothyroidism, unspecified; Z88.2 Allergy status to sulfonamides; Z91.030 Bee allergy status; Z88.8 Allergy status to other drugs, medicaments and biological substances; Z79.890 Hormone replacement therapy; Z79.899 Other long term (current) drug therapy; Z86.16 Personal history of COVID-19; Z90.49 Acquired absence of other specified parts of digestive tract
CPT/HCPCS: 0241U; 36415; 80053; 81001; 83605; 83735; 85025; 85379; 86140; 86757; 87476; 96361; 96374; 96375; 96376; 99284-25; J1170; J1642; J1885; J2765; J7042

== ENCOUNTER 2024-07-02 04:44 | Inpatient (IN) | payer MEDICAID ==
[2024-07-02] MEDS ORDERED: Naloxone 0.4 MG/ML SDV IVPUSH PRN ×2 (05:07→05:52)
[2024-07-02] MEDS: Morphine 2 MG/ML SYRINGE IVPUSH ONE ×2 (05:13→05:58)
[2024-07-02] MEDS: Sodium Chloride 0.9% 10 ML Syringe FLUSH PRN ×2 (05:14→10:45)
[2024-07-02 05:16] LABS: BASOPHILS ABSOLUTE AUTO 0.1 K/mm3 (0.0-0.2); BASOPHILS PERCENT AUTO 0.5 % (0.0-1.0); EOSINOPHILS ABSOLUTE AUTO 0.1 K/mm3 (0.0-0.4); EOSINOPHILS PERCENT AUTO 0.4 % (0.0-6.0); HEMATOCRIT 43.2 % (37.0-47.0); HEMOGLOBIN 15.3 gm/dl (12.0-16.0); IMMATURE GRAN ABSOLUTE AUTO 0.04 K/mm3 (0.00-0.05); IMMATURE GRAN PERCENT AUTO 0.3 % (0.0-0.4); LYMPHOCYTES ABSOLUTE AUTO 1.1 K/mm3 (1.0-4.8); LYMPHOCYTES PERCENT AUTO 8.4 % (24.0-44.0); MEAN CORPUSCULAR HEMOGLOBIN 35.2 pg (28.0-32.0); MEAN CORPUSCULAR HGB CONC 35.4 g/dl (32.0-36.0); MEAN CORPUSCULAR VOLUME 99.3 fl (83.0-99.0); MEAN PLATELET VOLUME 8.3 fl (9.4-12.3); MONOCYTES ABSOLUTE AUTO 1.2 K/mm3 (0.0-0.8); MONOCYTES PERCENT AUTO 9.2 % (0.0-8.0); NEUTROPHILS ABSOLUTE AUTO 10.5 K/mm3 (1.8-7.7); NEUTROPHILS PERCENT AUTO 81.2 % (41.0-71.0); PLATELET COUNT,PLT 274 K/mm3 (150-400); RED BLOOD CELL COUNT 4.35 M/mm3 (4.10-5.30); WHITE BLOOD CELL COUNT,WBC 12.98 K/mm3 (3.9-11.3)
[2024-07-02] MEDS: Aspirin 81 MG Tab.Chew PO ONE (05:21)
[2024-07-02 05:44] LABS: INR 1.05; PROTHROMBIN TIME 11.1 SECONDS (9.7-12.0)
[2024-07-02 05:52] LABS: A/G RATIO 1.7 (1-2); ALBUMIN 3.9 g/dl (3.4-5.0); BILIRUBIN TOTAL 0.9 mg/dL (0.2-1.0); BUN/CREATININE RATIO 8.3 (14-18); CREATININE 0.6 mg/dL (0.55-1.02); EST CRCL DRUG DOSING (CG) 66.76 mL/min; MAGNESIUM 1.5 mg/dL (1.8-2.4); PROTEIN TOTAL,TP 6.2 g/dl (6.4-8.2)
[2024-07-02] MEDS: Alum Hydrox/Mag Hydrox/Simeth 30 ML, Lidocaine 2% 15 ML PO ONE (05:54)
[2024-07-02 06:19] LABS: BARBITURATE SCREEN,URINE NEGATIVE (CUTOFF=200); BENZODIAZEPINES SCREEN,URINE PRESUMPTIVE POSITIVE (CUTOFF=150); BUPRENORPHINE SCREEN,URINE NEGATIVE (CUTOFF=10); METHADONE SCREEN, URINE NEGATIVE (CUTOFF=200); METHAMPHETAMINES SCREEN, URINE NEGATIVE (CUTOFF=500); OXYCODONE SCREEN,URINE PRESUMPTIVE POSITIVE (CUT0FF=100); THC SCREEN,URINE 20 NG/ML NEGATIVE (CUTOFF=50)
[2024-07-02 06:20] LABS: AMPHETAMINES SCREEN, URINE NEGATIVE (CUTOFF=500)
[2024-07-02] MEDS: Iopamidol 755 Mg/ML 100 ML Bottle IVPUSH ONE (06:31)
[2024-07-02] MEDS: Magnesium Sulfate (4.06 MEQ/ML) 5 GM/10 ML SDV IV ONE (06:51)
[2024-07-02] MEDS: Magnesium Sulfate/Water Premix 50 ML ONE (06:56)
[2024-07-02] MEDS: HYDROmorphone 0.5 MG/0.5 ML Syringe IVPUSH ONE ×3 (08:12→11:25)
[2024-07-02] MEDS: Famotidine 20 MG/2 ML SDV IVPUSH ONE (08:12)
[2024-07-02] MEDS ORDERED: Magnesium Sulfate/Water Premix 2 GM in Premix Bag 1 BAG IV ONE (09:22)
[2024-07-02] MEDS: Pantoprazole 40 MG Vial IVPUSH ONE (10:23)
[2024-07-02] MEDS: Iopamidol 612 MG/ML 100 ML Bottle IVPUSH ONE (10:45)
[2024-07-02] MEDS: Sodium Chloride 0.9% 1,000 ML IV ONE (10:46)
[2024-07-02 10:59] LABS: APPEARANCE,URINE CLEAR (Clear); BILIRUBIN,URINE NEGATIVE (Negative); COLOR,URINE YELLOW (Yellow); GLUCOSE,URINE NEGATIVE (Negative); KETONES,URINE NEGATIVE (Negative); LEUKOCYTE ESTERASE,URINE NEGATIVE (Negative); NITRITE,URINE NEGATIVE (Negative); OCCULT BLOOD,URINE NEGATIVE (Negative); PROTEIN,URINE NEGATIVE (Negative); UROBILINOGEN,URINE 0.2 (0.2-1.0)
[2024-07-02] MEDS: Sodium Chloride 0.9% 1,000 ML IV SCH (12:34)
[2024-07-02] MEDS ORDERED: Sodium Chloride 0.9% 10 ML Syringe FLUSH PRN (12:52)
[2024-07-02] MEDS: Albuterol/Ipratropium 3.0-0.5 MG/3 ML Neb Soln NEB ONE (12:58)
[2024-07-02] MEDS ORDERED: dexmedeTOMIDine HCl 200 MCG/2 ML SDV ONE (13:00)
[2024-07-02] MEDS ORDERED: Sodium Chloride 0.9% 1,000 ML IV ONE ×4 (13:00→16:00)
[2024-07-02] MEDS ORDERED: Midazolam 1 MG/ML 2 ML SDV ONE (13:09)
[2024-07-02] MEDS ORDERED: fentaNYL 100 MCG/2 ML SDV ONE ×2 (13:15→15:40)
[2024-07-02] MEDS ORDERED: Succinylcholine 200 MG/10 ML MDV ONE (13:16)
[2024-07-02] MEDS ORDERED: Ondansetron 4 MG/2 ML SDV ONE (13:16)
[2024-07-02] MEDS ORDERED: Lidocaine 1% 5 ML VIAL ONE (13:16)
[2024-07-02] MEDS ORDERED: Propofol 200 MG/20 ML SDV ONE (13:16)
[2024-07-02] MEDS ORDERED: Rocuronium 50 MG/5 ML Vial ONE (13:26)
[2024-07-02] MEDS ORDERED: Sodium Chloride 0.9% 100 ML ONE (13:29)
[2024-07-02] MEDS ORDERED: ePHEDrine 50 MG/ML SDV ONE ×2 (13:32→15:10)
[2024-07-02] MEDS ORDERED: HYDROmorphone 0.5 MG/0.5 ML Syringe IVPUSH PRN (14:56)
[2024-07-02] MEDS ORDERED: Ondansetron 4 MG/2 ML SDV IVPUSH PRN (14:56)
[2024-07-02] MEDS ORDERED: Ketamine 200 MG/20 ML MDV ONE (15:04)
[2024-07-02] MEDS ORDERED: fentaNYL 100 MCG/2 ML SDV IVPUSH PRN (15:15)
[2024-07-02] MEDS ORDERED: Sugammadex Sodium 200 MG/2 ML VIAL IV ONE (15:52)
[2024-07-02 18:56] LABS: BASOPHILS PERCENT AUTO 0.2 % (0.0-1.0); HEMATOCRIT 40.2 % (37.0-47.0); HEMOGLOBIN 13.8 gm/dl (12.0-16.0); IMMATURE GRAN ABSOLUTE AUTO 0.03 K/mm3 (0.00-0.05); IMMATURE GRAN PERCENT AUTO 0.3 % (0.0-0.4); LYMPHOCYTES ABSOLUTE AUTO 0.3 K/mm3 (1.0-4.8); LYMPHOCYTES PERCENT AUTO 3.3 % (24.0-44.0); MEAN CORPUSCULAR HEMOGLOBIN 34.9 pg (28.0-32.0); MEAN CORPUSCULAR HGB CONC 34.3 g/dl (32.0-36.0); MEAN CORPUSCULAR VOLUME 101.8 fl (83.0-99.0); MEAN PLATELET VOLUME 8.2 fl (9.4-12.3); MONOCYTES ABSOLUTE AUTO 0.7 K/mm3 (0.0-0.8); MONOCYTES PERCENT AUTO 7.9 % (0.0-8.0); NEUTROPHILS ABSOLUTE AUTO 7.7 K/mm3 (1.8-7.7); NEUTROPHILS PERCENT AUTO 88.3 % (41.0-71.0); PLATELET COUNT,PLT 160 K/mm3 (150-400); RED BLOOD CELL COUNT 3.95 M/mm3 (4.10-5.30); WHITE BLOOD CELL COUNT,WBC 8.73 K/mm3 (3.9-11.3)
[2024-07-02] MEDS: Lactated Ringers 1,000 ML IV SCH (19:14)
[2024-07-02 19:15] LABS: POTASSIUM,K 4.1 mEq/L (3.5-5.1)
[2024-07-02 19:22] LABS: CALCIUM 7.4 mg/dL (8.5-10.1)
[2024-07-02 20:06] LABS: ANION GAP 16.1 (5-15); BUN/CREATININE RATIO 13.3 (14-18); CREATININE 0.6 mg/dL (0.55-1.02); EST CRCL DRUG DOSING (CG) 66.76 mL/min
[2024-07-02] MEDS: Ondansetron 4 MG/2 ML SDV IVPUSH PRN (21:23)
[2024-07-02] MEDS ORDERED: Albuterol/Ipratropium 3.0-0.5 MG/3 ML Neb Soln NEB PRN (21:28)
[2024-07-02] MEDS: Morphine 2 MG/ML SYRINGE IVPUSH PRN (22:08)
[2024-07-02] MEDS: Piperacillin/Tazobactam 4.5 GM in Sodium Chloride 0.9% 100 ML IV SCH (22:59)
[2024-07-03] MEDS: Piperacillin/Tazobactam 4.5 GM in Sodium Chloride 0.9% 100 ML IV ONE ×2 (00:32→00:33)
[2024-07-03] MEDS: Sodium Chloride 0.9% 10 ML Syringe FLUSH SCH (00:33)
[2024-07-03] MEDS: Benzocaine 20% Topical Spray UD MUCMEM ONE ×2 (04:55→15:16)
[2024-07-03] MEDS: Sodium Chloride 0.9% 1,000 ML IV SCH (05:20)
[2024-07-03] MEDS: Piperacillin/Tazobactam 4.5 GM in Sodium Chloride 0.9% 100 ML IV SCH (06:25)
[2024-07-03 07:18] LABS: BASOPHILS PERCENT AUTO 0.3 % (0.0-1.0); EOSINOPHILS PERCENT AUTO 0.1 % (0.0-6.0); HEMOGLOBIN 13.3 gm/dl (12.0-16.0); IMMATURE GRAN ABSOLUTE AUTO 0.04 K/mm3 (0.00-0.05); IMMATURE GRAN PERCENT AUTO 0.3 % (0.0-0.4); LYMPHOCYTES ABSOLUTE AUTO 0.5 K/mm3 (1.0-4.8); LYMPHOCYTES PERCENT AUTO 3.8 % (24.0-44.0); MEAN CORPUSCULAR HEMOGLOBIN 34.5 pg (28.0-32.0); MEAN CORPUSCULAR HGB CONC 34.1 g/dl (32.0-36.0); MEAN PLATELET VOLUME 8.6 fl (9.4-12.3); MONOCYTES ABSOLUTE AUTO 1.3 K/mm3 (0.0-0.8); MONOCYTES PERCENT AUTO 10.8 % (0.0-8.0); NEUTROPHILS ABSOLUTE AUTO 10.5 K/mm3 (1.8-7.7); NEUTROPHILS PERCENT AUTO 84.7 % (41.0-71.0); PLATELET COUNT,PLT 196 K/mm3 (150-400); RED BLOOD CELL COUNT 3.86 M/mm3 (4.10-5.30); WHITE BLOOD CELL COUNT,WBC 12.37 K/mm3 (3.9-11.3)
[2024-07-03 07:41] LABS: PHOSPHORUS 3.3 mg/dL (2.6-4.7)
[2024-07-03 07:58] LABS: CREATININE 0.7 mg/dL (0.55-1.02); EST CRCL DRUG DOSING (CG) 64.37 mL/min
[2024-07-03 08:18] LABS: MAGNESIUM 1.6 mg/dL (1.8-2.4)
[2024-07-03 08:33] LABS: CALCIUM 7.6 mg/dL (8.5-10.1)
[2024-07-03] MEDS ORDERED: Magnesium Sulfate (4.06 MEQ/ML) 5 GM/10 ML SDV IV STA (09:09)
[2024-07-03] MEDS: Magnesium Sulfate/Water Premix 2 GM in Premix Bag 1 BAG IV STA (09:48)
[2024-07-03] MEDS: Morphine 4 MG/ML Syringe IVPUSH PRN (10:10)
[2024-07-03 13:47] LABS: BASOPHILS PERCENT AUTO 0.3 % (0.0-1.0); EOSINOPHILS PERCENT AUTO 0.1 % (0.0-6.0); HEMATOCRIT 38.5 % (37.0-47.0); HEMOGLOBIN 13.2 gm/dl (12.0-16.0); IMMATURE GRAN ABSOLUTE AUTO 0.04 K/mm3 (0.00-0.05); IMMATURE GRAN PERCENT AUTO 0.4 % (0.0-0.4); LYMPHOCYTES ABSOLUTE AUTO 0.7 K/mm3 (1.0-4.8); LYMPHOCYTES PERCENT AUTO 6.7 % (24.0-44.0); MEAN CORPUSCULAR HEMOGLOBIN 35.2 pg (28.0-32.0); MEAN CORPUSCULAR HGB CONC 34.3 g/dl (32.0-36.0); MEAN CORPUSCULAR VOLUME 102.7 fl (83.0-99.0); MEAN PLATELET VOLUME 8.6 fl (9.4-12.3); MONOCYTES ABSOLUTE AUTO 1.2 K/mm3 (0.0-0.8); MONOCYTES PERCENT AUTO 11.7 % (0.0-8.0); NEUTROPHILS ABSOLUTE AUTO 8.5 K/mm3 (1.8-7.7); NEUTROPHILS PERCENT AUTO 80.8 % (41.0-71.0); PLATELET COUNT,PLT 177 K/mm3 (150-400); RED BLOOD CELL COUNT 3.75 M/mm3 (4.10-5.30)
[2024-07-03 14:45] LABS: CREATININE 0.7 mg/dL (0.55-1.02); EST CRCL DRUG DOSING (CG) 64.37 mL/min
[2024-07-03] MEDS: Ketorolac 15 MG/ML SDV IVPUSH SCH (15:33)
[2024-07-03 16:08] LABS: ANION GAP 12.8 (5-15); CALCIUM 7.9 mg/dL (8.5-10.1); POTASSIUM,K 3.8 mEq/L (3.5-5.1)
[2024-07-03] MEDS: Enoxaparin 40 MG/0.4 ML Syringe SUBCUT SCH (21:18)
[2024-07-04 10:31] LABS: BASOPHILS PERCENT AUTO 0.3 % (0.0-1.0); EOSINOPHILS ABSOLUTE AUTO 0.1 K/mm3 (0.0-0.4); EOSINOPHILS PERCENT AUTO 1.8 % (0.0-6.0); HEMATOCRIT 32.8 % (37.0-47.0); HEMOGLOBIN 10.8 gm/dl (12.0-16.0); IMMATURE GRAN ABSOLUTE AUTO 0.03 K/mm3 (0.00-0.05); IMMATURE GRAN PERCENT AUTO 0.4 % (0.0-0.4); LYMPHOCYTES ABSOLUTE AUTO 0.6 K/mm3 (1.0-4.8); LYMPHOCYTES PERCENT AUTO 7.5 % (24.0-44.0); MEAN CORPUSCULAR HEMOGLOBIN 34.5 pg (28.0-32.0); MEAN CORPUSCULAR HGB CONC 32.9 g/dl (32.0-36.0); MEAN CORPUSCULAR VOLUME 104.8 fl (83.0-99.0); MEAN PLATELET VOLUME 8.7 fl (9.4-12.3); MONOCYTES ABSOLUTE AUTO 0.8 K/mm3 (0.0-0.8); MONOCYTES PERCENT AUTO 10.5 % (0.0-8.0); NEUTROPHILS PERCENT AUTO 79.5 % (41.0-71.0); PLATELET COUNT,PLT 162 K/mm3 (150-400); RED BLOOD CELL COUNT 3.13 M/mm3 (4.10-5.30)
[2024-07-04 10:49] LABS: ANION GAP 11.2 (5-15); CALCIUM 7.7 mg/dL (8.5-10.1); CREATININE 0.6 mg/dL (0.55-1.02); EST CRCL DRUG DOSING (CG) 76.7 mL/min; MAGNESIUM 1.7 mg/dL (1.8-2.4); POTASSIUM,K 3.2 mEq/L (3.5-5.1)
[2024-07-04] MEDS: Ketorolac 15 MG/ML SDV IVPUSH SCH (11:08)
[2024-07-04] MEDS: Pantoprazole 40 MG Vial IV SCH (11:09)
[2024-07-04] MEDS ORDERED: Benzocaine 20% Dental Gel 30 GM Jar MUCMEM PRN (19:44)
[2024-07-04] MEDS: Pantoprazole 40 MG in Sodium Chloride 0.9% 100 ML IV SCH (20:09)
[2024-07-04] MEDS: Benzocaine 20% Topical Spray UD MUCMEM ONE (21:03)
[2024-07-05] MEDS: Levothyroxine 100 MCG Vial IVPUSH SCH (05:30)
[2024-07-05 05:37] LABS: BASOPHILS PERCENT AUTO 0.3 % (0.0-1.0); EOSINOPHILS ABSOLUTE AUTO 0.2 K/mm3 (0.0-0.4); HEMATOCRIT 30.4 % (37.0-47.0); HEMOGLOBIN 9.8 gm/dl (12.0-16.0); IMMATURE GRAN ABSOLUTE AUTO 0.02 K/mm3 (0.00-0.05); IMMATURE GRAN PERCENT AUTO 0.3 % (0.0-0.4); LYMPHOCYTES ABSOLUTE AUTO 0.5 K/mm3 (1.0-4.8); LYMPHOCYTES PERCENT AUTO 7.9 % (24.0-44.0); MEAN CORPUSCULAR HEMOGLOBIN 34.4 pg (28.0-32.0); MEAN CORPUSCULAR HGB CONC 32.2 g/dl (32.0-36.0); MEAN PLATELET VOLUME 8.7 fl (9.4-12.3); MONOCYTES ABSOLUTE AUTO 0.5 K/mm3 (0.0-0.8); MONOCYTES PERCENT AUTO 8.2 % (0.0-8.0); NEUTROPHILS ABSOLUTE AUTO 4.9 K/mm3 (1.8-7.7); NEUTROPHILS PERCENT AUTO 80.3 % (41.0-71.0); PLATELET COUNT,PLT 143 K/mm3 (150-400); RED BLOOD CELL COUNT 2.85 M/mm3 (4.10-5.30)
[2024-07-05 05:39] LABS: MEAN CORPUSCULAR VOLUME 106.7 fl (83.0-99.0)
[2024-07-05 05:56] LABS: ANION GAP 15.1 (5-15); CALCIUM 7.9 mg/dL (8.5-10.1); CREATININE 0.5 mg/dL (0.55-1.02); EST CRCL DRUG DOSING (CG) 93.49 mL/min; MAGNESIUM 1.5 mg/dL (1.8-2.4); POTASSIUM,K 3.1 mEq/L (3.5-5.1)
[2024-07-05] MEDS: Sodium Chloride 0.9% 1,000 ML IV SCH (11:10)
[2024-07-05] MEDS: Potassium Chloride 20 MEQ Tab.ER PO ONE (11:12)
[2024-07-05] MEDS: Magnesium Sulfate/Water Premix 4 GM in Premix Bag 1 BAG IV ONE (11:12)
[2024-07-05] MEDS: Potassium Chloride 10 MEQ in Premix Bag 1 BAG IV SCH (11:13)
[2024-07-05] MEDS: Polyethylene Glycol 3350 Powder 17 GM Packet PO SCH (21:07)
[2024-07-06 05:31] LABS: BASOPHILS PERCENT AUTO 0.4 % (0.0-1.0); EOSINOPHILS ABSOLUTE AUTO 0.2 K/mm3 (0.0-0.4); EOSINOPHILS PERCENT AUTO 3.9 % (0.0-6.0); HEMATOCRIT 31.4 % (37.0-47.0); HEMOGLOBIN 10.2 gm/dl (12.0-16.0); IMMATURE GRAN ABSOLUTE AUTO 0.03 K/mm3 (0.00-0.05); IMMATURE GRAN PERCENT AUTO 0.6 % (0.0-0.4); LYMPHOCYTES ABSOLUTE AUTO 0.5 K/mm3 (1.0-4.8); LYMPHOCYTES PERCENT AUTO 8.9 % (24.0-44.0); MEAN CORPUSCULAR HEMOGLOBIN 34.6 pg (28.0-32.0); MEAN CORPUSCULAR HGB CONC 32.5 g/dl (32.0-36.0); MEAN CORPUSCULAR VOLUME 106.4 fl (83.0-99.0); MEAN PLATELET VOLUME 8.3 fl (9.4-12.3); MONOCYTES ABSOLUTE AUTO 0.5 K/mm3 (0.0-0.8); MONOCYTES PERCENT AUTO 9.7 % (0.0-8.0); NEUTROPHILS ABSOLUTE AUTO 4.1 K/mm3 (1.8-7.7); NEUTROPHILS PERCENT AUTO 76.5 % (41.0-71.0); PLATELET COUNT,PLT 154 K/mm3 (150-400); RED BLOOD CELL COUNT 2.95 M/mm3 (4.10-5.30); WHITE BLOOD CELL COUNT,WBC 5.37 K/mm3 (3.9-11.3)
[2024-07-06 05:58] LABS: ANION GAP 17.6 (5-15); CALCIUM 7.8 mg/dL (8.5-10.1); CREATININE 0.5 mg/dL (0.55-1.02); EST CRCL DRUG DOSING (CG) 96.31 mL/min; MAGNESIUM 1.6 mg/dL (1.8-2.4); POTASSIUM,K 3.6 mEq/L (3.5-5.1)
[2024-07-06] MEDS ORDERED: Morphine 2 MG/ML SYRINGE IVPUSH PRN (10:03)
[2024-07-06] MEDS: Acetaminophen 325 MG Tab PO SCH (11:40)
[2024-07-06] MEDS: Magnesium Sulfate/Water Premix 4 GM in Premix Bag 1 BAG IV ONE (11:41)
[2024-07-06] MEDS: Morphine 2 MG/ML SYRINGE IVPUSH PRN (12:04)
[2024-07-06] MEDS: oxyCODONE 5 MG Tab PO PRN ×2 (13:22→17:17)
[2024-07-06] MEDS: Morphine 4 MG/ML Syringe IVPUSH ONE (14:36)
[2024-07-07] MEDS: Levothyroxine 25 MCG Tab PO SCH (05:44)
[2024-07-07 10:58] LABS: BASOPHILS PERCENT AUTO 0.5 % (0.0-1.0); EOSINOPHILS ABSOLUTE AUTO 0.2 K/mm3 (0.0-0.4); EOSINOPHILS PERCENT AUTO 2.6 % (0.0-6.0); HEMATOCRIT 32.8 % (37.0-47.0); HEMOGLOBIN 11.1 gm/dl (12.0-16.0); IMMATURE GRAN ABSOLUTE AUTO 0.03 K/mm3 (0.00-0.05); IMMATURE GRAN PERCENT AUTO 0.5 % (0.0-0.4); LYMPHOCYTES ABSOLUTE AUTO 0.5 K/mm3 (1.0-4.8); LYMPHOCYTES PERCENT AUTO 8.7 % (24.0-44.0); MEAN CORPUSCULAR HEMOGLOBIN 34.5 pg (28.0-32.0); MEAN CORPUSCULAR HGB CONC 33.8 g/dl (32.0-36.0); MEAN PLATELET VOLUME 8.7 fl (9.4-12.3); MONOCYTES ABSOLUTE AUTO 0.7 K/mm3 (0.0-0.8); NEUTROPHILS ABSOLUTE AUTO 4.7 K/mm3 (1.8-7.7); NEUTROPHILS PERCENT AUTO 76.7 % (41.0-71.0); PLATELET COUNT,PLT 225 K/mm3 (150-400); RED BLOOD CELL COUNT 3.22 M/mm3 (4.10-5.30); WHITE BLOOD CELL COUNT,WBC 6.08 K/mm3 (3.9-11.3)
[2024-07-07 11:08] LABS: MEAN CORPUSCULAR VOLUME 101.9 fl (83.0-99.0)
[2024-07-07 11:17] LABS: ANION GAP 12.4 (5-15); CALCIUM 7.9 mg/dL (8.5-10.1); CREATININE 0.5 mg/dL (0.55-1.02); EST CRCL DRUG DOSING (CG) 97.5 mL/min; MAGNESIUM 1.3 mg/dL (1.8-2.4); POTASSIUM,K 3.4 mEq/L (3.5-5.1)
[2024-07-07] MEDS: Ibuprofen 600 MG Tab PO SCH (12:09)
[2024-07-07 12:58] VITALS: BP 143/68; PULSE 64
[2024-07-07] MEDS: Magnesium Sulfate/Water Premix 4 GM in Premix Bag 1 BAG IV ONE (13:27)
[2024-07-07] MEDS: Potassium Chloride 20 MEQ Tab.ER PO ONE (15:18)
[2024-07-08] MEDS ORDERED: Potassium Chloride 20 MEQ Tab.ER PO SCH (15:30)
[2024-07-11] MEDS ORDERED: Levothyroxine 25 MCG Tab PO SCH (06:00)
== END 2024-07-07 18:30 | disposition home or self-care (01) | DRG 331 ==
LOC: JD.ED 04:44 → JD.SDS 12:22 → JD.MS 18:12 → OBSVTOIN 07-04 10:23
PROVIDERS: ADMIT Student in an Organized Health Care Education/Training Program; ATTEND Student in an Organized Health Care Education/Training Program
PROC: 0D9670Z Drainage of Stomach with Drainage Device, Via Natural or Artificial Opening (ICD-10-PCS; 2024-07-02)
PROC: 0DT80ZZ Resection of Small Intestine, Open Approach (ICD-10-PCS; principal; 2024-07-02 13:00)
DX: K55.9 Vascular disorder of intestine, unspecified (principal); G35 Multiple sclerosis; I10 Essential (primary) hypertension; H54.7 Unspecified visual loss; E03.9 Hypothyroidism, unspecified; R07.9 Chest pain, unspecified; F17.210 Nicotine dependence, cigarettes, uncomplicated; Z86.16 Personal history of COVID-19; Z88.2 Allergy status to sulfonamides; Z88.8 Allergy status to other drugs, medicaments and biological substances; Z90.710 Acquired absence of both cervix and uterus; Z90.49 Acquired absence of other specified parts of digestive tract; Z90.89 Acquired absence of other organs; Z85.038 Personal history of other malignant neoplasm of large intestine; Z91.030 Bee allergy status; Z79.899 Other long term (current) drug therapy; Z87.01 Personal history of pneumonia (recurrent); Z79.890 Hormone replacement therapy
CPT/HCPCS: 00840; 36415; 51702; 71045; 71045-26; 71275; 71275-26; 74177; 74177-26; 80048; 80053; 80306; 81003; 82947; 83605; 83735; 83880; 84100; 84484; 84702; 85025; 85379; 85610; 93005; 93010; 94640; 94761; 96361; 96365; 96375; 96376; 96523; 99140; 99285; 99285-25; A9270-GY; J0330; J1170; J1642; J1650; J1885; J2250; J2270; J2405; J2470; J2543; J2704; J3010; J3475; J3480; J3490; J7030; J7120; J7620-GY; Q9967